=== PATIENT | male | born 1935 | race Caucasian/White ===

== ENCOUNTER → 2017-12-13 10:18 | Outpatient (CLI) | payer MEDICARE, OTHER, SELFPAY ==
[2017-12-13 13:29] LABS: Basophils # 0.1 K/mm3 (0-0.2); Basophils % 1.1 % (0.1-2.0); Eosinophils % 15.6 % (0.1-12.0); Hemoglobin 12.9 g/dL (14.1-18.0); Lymphocytes # 1.7 K/mm3 (0.7-4.5); Lymphocytes % 26.1 K/mm3 (10-50); Mean Corpuscular HGB Conc 30.7 g/dL (31.8-35.4); Mean Corpuscular Hemoglobin 31.8 pg (27.0-31.2); Mean Corpuscular Volume 103.3 fl (80-94); Mean Platelet Volume 8.5 fl (7.4-10.4); Monocytes # 0.5 K/mm3 (0.1-1.0); Neutrophils # 3.3 K/mm3 (1.8-7.8); Neutrophils % 50.2 % (37.0-80.0); Platelet Count 156 K/mm3 (142-424); Red Blood Count 4.07 M/mm3 (4.60-6.20); Red Cell Distribution Width 14.6 % (11.5-17.5); White Blood Count 6.6 K/mm3 (4.8-10.8)
[2017-12-13 13:52] LABS: Alanine Aminotransferase 14 U/L (12-78); Albumin Level 4.2 gm/dL (3.4-5.0); Albumin/Globulin Ratio 1.3 (1.1-1.8); Alkaline Phosphatase 124 U/L (46-116); Anion Gap 10.4 mEq/L (5-15); Aspartate Amino Transferase 15 U/L (15-37); Bilirubin,Total 0.6 mg/dL (0.2-1.0); Blood Urea Nitrogen 14 mg/dL (7-18); Calcium 9.3 mg/dL (8.5-10.1); Carbon Dioxide 34 mmol/L (21.0-32.0); Chloride 105 mmol/L (98-107); Chol/HDL Ratio 3.1 (1-3.5); Cholesterol 131 mg/dL (140-200); Creatinine,Serum 1.27 mg/dL (0.70-1.30); Estimated Glomerular Filt Rate 54 ml/min (>60); GFR (African American) 66 ML/MIN (>60); Globulin 3.3 gm/dl (1.3-3.2); Glucose 91 mg/dL (74-106); HDL Cholesterol 42 mg/dL (27-67); LDL Cholesterol 70 mg/dL (0-130); Potassium 4.4 mmoL/L (3.5-5.1); Sodium 145 mmol/L (136-145); Total Protein,Serum 7.5 gm/dL (6.4-8.2); Triglycerides 94 mg/dL (30-200); VLDL Cholesterol 19 mg/dL (0-40)
[2017-12-13 15:09] LABS: Erythrocyte Sedimentation Rate 14 mm/hr (0-20)
[2017-12-14 18:32] LABS: Vitamin B12 >2000 pg/mL (232-1245)
== END ==
PROVIDERS: PCP Internal Medicine Adolescent Medicine; Visit Provider Internal Medicine Adolescent Medicine
DX: E78.5 Hyperlipidemia, unspecified (principal); M10.9 Gout, unspecified; E53.8 Deficiency of other specified B group vitamins
CPT/HCPCS: 36415; 80053; 80061; 82607; 85025; 85651

== ENCOUNTER 2017-12-19 12:03 | Emergency (ER) | payer MEDICARE, OTHER, SELFPAY ==
[2017-12-19 12:13] VITALS: BP 129/83; PULSE 75; RESP 22; TEMP 36.5; O2SAT 96; BMI 27.9
--- NOTE | 2017-12-19 12:30 | CT_ITS ---
CT cervical spine wo con INDICATION: Neck pain following injury ITS.REASON: FALL ORDERING PHYSICIAN: Florecita Garza MD PATIENT AGE: 82 years COMPARISON: None TECHNIQUE: Axial images are obtained without contrast. Sagittal and coronal reformatted images are reviewed as well. All CT scans at the facility use one or more dose reduction, viz: automated exposure control; ma/kV adjustment per patient size (including targeted exams where dose is matched to indication; i.e. head); or iterative reconstruction technique. FINDINGS: There is normal alignment. No fracture or dislocation is evident. There is degenerative disc disease at C2-C3 with small endplate osteophytes slightly eccentric toward the left with mild left-sided foraminal narrowing. C3-C4: Degenerative disc disease with endplate hypertrophy eccentric towards the left with moderate left lateral recess and foraminal narrowing. C4-C5: Degenerative disc disease with borderline canal stenosis at 10 to 11 mm with bilateral foraminal narrowing right greater than left from uncovertebral hypertrophy. C5-C6 degenerative disc disease with mild bilateral foraminal narrowing from uncovertebral hypertrophy. C6-C7 mild degenerative disc disease with left-sided foraminal narrowing from uncovertebral hypertrophy. C7-T1: Degenerative disc disease Lung apices are clear. There is opacification within the ethmoid sinuses and there is an air-fluid level in the right maxillary sinus. IMPRESSION: 1. No acute fracture. 2. Multilevel cervical spondylosis with degenerative disc disease with foraminal, lateral recess, and canal narrowing as detailed above. 3. Paranasal sinus disease
--- NOTE | 2017-12-19 12:30 | CT_ITS ---
CT head/brain wo con HISTORY: Headache, head pain, laceration, contusion ITS.REASON: FALL ORDERING PHYSICIAN: Florecita Garza MD PATIENT AGE: 82 years COMPARISON: 03/28/2016 TECHNIQUE: Axial images obtained without contrast. Brain and bone windows reviewed. All CT scans at the facility use one or more dose reduction, viz: automated exposure control; ma/kV adjustment per patient size (including targeted exams where dose is matched to indication; i.e. head); or iterative reconstruction technique. FINDINGS: No midline shift, mass effect, intracranial hemorrhage, hydrocephalus, or extra-axial fluid collection is evident. There is moderate generalized atrophy with periventricular ischemic gliotic changes. No intra or extra-axial hemorrhage. The calvarium has an unremarkable appearance. No mastoid effusion. Mild mucosal thickening involves the ethmoid sinuses. Was an air-fluid level in the right maxillary sinus on the cervical spine CT IMPRESSION: 1. No acute intracranial findings. 2. Atrophy with chronic ischemic change. 3. Sinus disease
[2017-12-19 12:43] LABS: Basophils # 0.1 K/mm3 (0-0.2); Basophils % 0.7 % (0.1-2.0); Eosinophils # 0.6 K/mm3 (0.0-0.4); Eosinophils % 6.5 % (0.1-12.0); Hematocrit 41.6 % (42.0-52.0); Hemoglobin 13.1 g/dL (14.1-18.0); Lymphocytes # 1.4 K/mm3 (0.7-4.5); Lymphocytes % 15.5 K/mm3 (10-50); Mean Corpuscular HGB Conc 31.4 g/dL (31.8-35.4); Mean Corpuscular Hemoglobin 31.9 pg (27.0-31.2); Mean Corpuscular Volume 101.4 fl (80-94); Mean Platelet Volume 8.2 fl (7.4-10.4); Monocytes # 0.6 K/mm3 (0.1-1.0); Monocytes % 7.2 % (1.7-9.3); Neutrophils # 6.2 K/mm3 (1.8-7.8); Neutrophils % 70.2 % (37.0-80.0); Platelet Count 169 K/mm3 (142-424); Red Blood Count 4.11 M/mm3 (4.60-6.20); Red Cell Distribution Width 14.6 % (11.5-17.5); White Blood Count 8.8 K/mm3 (4.8-10.8)
[2017-12-19 12:55] LABS: Alanine Aminotransferase 12 U/L (12-78); Albumin/Globulin Ratio 1.1 (1.1-1.8); Alkaline Phosphatase 130 U/L (46-116); Anion Gap 11.4 mEq/L (5-15); Aspartate Amino Transferase 15 U/L (15-37); Bilirubin,Total 0.6 mg/dL (0.2-1.0); Blood Urea Nitrogen 11 mg/dL (7-18); Calcium 9.1 mg/dL (8.5-10.1); Carbon Dioxide 32 mmol/L (21.0-32.0); Chloride 103 mmol/L (98-107); Creatinine Clearance Estimated 60 mL/min (0-300); Creatinine,Serum 1.31 mg/dL (0.70-1.30); Estimated Glomerular Filt Rate 53 ml/min (>60); GFR (African American) 64 ML/MIN (>60); Globulin 3.5 gm/dl (1.3-3.2); Glucose 91 mg/dL (74-106); Potassium 4.4 mmoL/L (3.5-5.1); Sodium 142 mmol/L (136-145); Total Protein,Serum 7.5 gm/dL (6.4-8.2)
--- NOTE | 2017-12-19 14:20 | [facility].EDFALL ---
ED Disposition Clinical Impression: Laceration, Fall Disposition: Home, Self-Care Condition on Discharge: Good Instructions: DI for Laceration Repair Additional Instructions: Sutures out in 5-[address] Simon's office Referrals: Kei Simon MD [Primary Care Provider] - - Critical Care Critical Care Time: No Attestation: On 12/19/17, the high probability of a clinically significant, sudden or life threatening deterioration of the following system(s) required my full and direct attention, intervention and personal management. The time I documented below is in addition to time spent performing reported procedures but includes the following listed in this critical care notation. Medical Decision Making - Jamil Inquiry Pt receiving controlled substance: No Vital Signs: 12/19/17 12:13 Temperature 97.7 F Temperature Source Oral Pulse Rate [Right Radial] 75 Respiratory Rate 22 Blood Pressure [Right Arm] 129/83 Blood Pressure Mean [Right Arm] 98 Blood Pressure Source [Right Arm] Automatic Cuff Blood Pressure Position [Right Arm] Sitting 02 Sat by Pulse Oximetry 96 Oxygen Delivery Method Room Air - Lab Data Lab results reviewed: Yes: I reviewed the patient's lab results. Lab Results 12/19/17 12:30: WBC 8.8, RBC 4.11 L, Hgb 13.1 L, Hct 41.6 L, MCV 101.4 H, MCH 31.9 H, MCHC 31.4 L, RDW 14.6, Plt Count 169, MPV 8.2, Neut % (Auto) 70.2, Lymph % (Auto) 15.5, [place] % (Auto) 7.2, Eos % (Auto) 6.5, Baso % (Auto) 0.7, Neut # (Auto) 6.2, Lymph # (Auto) 1.4, [place] # (Auto) 0.6, Eos # (Auto) 0.6 H, Baso # (Auto) 0.1 12/19/17 12:30: Sodium 142, Potassium 4.4, Chloride 103, Carbon Dioxide 32, Anion Gap 11.4, BUN 11, Creatinine 1.31 H, Estimated Creat Clear 60, Estimated GFR 53 L, Est GFR ( Amer) 64, Glucose 91, Calcium 9.1, Total Bilirubin 0.6, AST 15, ALT 12, Alkaline Phosphatase 130 H, Total Protein 7.5, Albumin 4.0, Globulin 3.5 H, Albumin/Globulin Ratio 1.1 12/19/17 12:30: Total Creatine Kinase 244, CK-MB (CK-2) 1.3, CK-MB (CK-2) Rel Index 0.5, Troponin I < 0.02 Result diagrams: 12/19/17 12:30 12/19/17 12:30 Orders (Tests/Meds): ED MEDICATIONS Discontinued Medications Generic Name Dose Route Start Last Admin Trade Name Freq PRN Reason Stop Dose Admin Tetanus/Diphtheria Toxoids 0.5 ml 12/19/17 12:54 12/19/17 14:11 Tenivac 0.5ml Syringe IM 12/19/17 12:55 Not Given .ONCE ONE Tetanus/Reduced Diphtheria/Acell Pertussis 0.5 ml 12/19/17 13:26 12/19/17 13:27 Adacel Tdap 0.5ml Syringe IM 12/19/17 13:27 0.5 ml .ONCE ONE Administration ORDERS Category Date Time Status ECG Request by /Nse Stat Y 12/19/17 14:13 Ordered - ECG Data Tracing #1 I reviewed this ECG and interpreted as documented below: NSR, ST depression noted laterally on multiple prior EKG's, including 10/15. No acute changes; some motion artifact; old RBBB Normal Sinus Rhythm: Yes Fall HPI - General Chief Complaint: Wound/Laceration Stated Complaint: AO [id number] lac above l eye Time Seen by Provider: 12/19/17 12:45 Mode of Arrival: Wheelchair Source of Information: Spouse Limitations: No Limitations Description of Symptoms (Recalled from ER Triage Doc. by RN): CAREGIVER STATES PT WAS FOUND IN THE BATHROOM AND HAD HIT HEAD ON A DOOR FRAME AND CUT LEFT EYE BROW. PT STATES THAT HE DID NOT PASS OUT. - History of Present Illness HPI Narrative: patient states he was using the bathroom and he accidentally fell today and struck his head, sustained a 2 cm linear laceration just lateral to the left eye and he denies any prodrome; denies LOC but this event was not witnessed. 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 complaint: fall Onset (ago): hour(s) Fall from: other (commode) Fall witnessed: no Place fall occurred: home Loss of consciousness: other (patient denies LOC) Prolonged down time: no Symptoms
--- NOTE | 2017-12-19 14:23 | ED_ITS ---
ED Disposition Clinical Impression: Laceration, Fall Disposition: Home, Self-Care Condition on Discharge: Good Instructions: DI for Laceration Repair Additional Instructions: Sutures out in 5-[address] Simon's office Referrals: Kei Simon MD [Primary Care Provider] - - Critical Care Critical Care Time: No Attestation: On 12/19/17, the high probability of a clinically significant, sudden or life threatening deterioration of the following system(s) required my full and direct attention, intervention and personal management. The time I documented below is in addition to time spent performing reported procedures but includes the following listed in this critical care notation. Medical Decision Making - Jamil Inquiry Pt receiving controlled substance: No Vital Signs: 12/19/17 12:13 Temperature 97.7 F Temperature Source Oral Pulse Rate [Right Radial] 75 Respiratory Rate 22 Blood Pressure [Right Arm] 129/83 Blood Pressure Mean [Right Arm] 98 Blood Pressure Source [Right Arm] Automatic Cuff Blood Pressure Position [Right Arm] Sitting 02 Sat by Pulse Oximetry 96 Oxygen Delivery Method Room Air - Lab Data Lab results reviewed: Yes: I reviewed the patient's lab results. Lab Results 12/19/17 12:30: WBC 8.8, RBC 4.11 L, Hgb 13.1 L, Hct 41.6 L, MCV 101.4 H, MCH 31.9 H, MCHC 31.4 L, RDW 14.6, Plt Count 169, MPV 8.2, Neut % (Auto) 70.2, Lymph % (Auto) 15.5, [place] % (Auto) 7.2, Eos % (Auto) 6.5, Baso % (Auto) 0.7, Neut # (Auto) 6.2, Lymph # (Auto) 1.4, [place] # (Auto) 0.6, Eos # (Auto) 0.6 H, Baso # (Auto) 0.1 12/19/17 12:30: Sodium 142, Potassium 4.4, Chloride 103, Carbon Dioxide 32, Anion Gap 11.4, BUN 11, Creatinine 1.31 H, Estimated Creat Clear 60, Estimated GFR 53 L, Est GFR ( Amer) 64, Glucose 91, Calcium 9.1, Total Bilirubin 0.6, AST 15, ALT 12, Alkaline Phosphatase 130 H, Total Protein 7.5, Albumin 4.0 , Globulin 3.5 H, Albumin/Globulin Ratio 1.1 12/19/17 12:30: Total Creatine Kinase 244, CK-MB (CK-2) 1.3, CK-MB (CK-2) Rel Index 0.5, Troponin I < 0.02 Result diagrams: 12/19/17 12:30 12/19/17 12:30 Orders (Tests/Meds): ED MEDICATIONS Discontinued Medications Generic Name Dose Route Start Last Admin Trade Name Freq PRN Reason Stop Dose Admin Tetanus/Diphtheria Toxoids 0.5 ml 12/19/17 12:54 12/19/17 14:11 Tenivac 0.5ml Syringe IM 12/19/17 12:55 Not Given .ONCE ONE Tetanus/Reduced Diphtheria/Acell Pertussis 0.5 ml 12/19/17 13:26 12/19/17 13: 27 Adacel Tdap 0.5ml Syringe IM 12/19/17 13:27 0.5 ml .ONCE ONE Administration ORDERS Category Date Time Status ECG Request by /Nse Stat Y 12/19/17 14:13 Ordered - ECG Data Tracing #1 I reviewed this ECG and interpreted as documented below: NSR, ST depression noted laterally on multiple prior EKG's, including 10/15. No acute changes; some motion artifact; old RBBB Normal Sinus Rhythm: Yes Fall HPI - General Chief Complaint: Wound/Laceration Stated Complaint: AO [id number] lac above l eye Time Seen by Provider: 12/19/17 12:45 Mode of Arrival: Wheelchair Source of Information: Spouse Limitations: No Limitations Description of Symptoms (Recalled from ER Triage Doc. by RN): CAREGIVER STATES PT WAS FOUND IN THE BATHROOM AND HAD HIT HEAD ON A DOOR FRAME AND CUT LEFT EYE BROW. PT STATES JOSE ALBERTO
[2017-12-19 14:36] LABS: CKMB Relative Index 0.5 U/L (0-4.0); Creatine Kinase 244 U/L (39-308); Creatine Kinase MB 1.3 ng/ml (0.0-3.6); Troponin I < 0.02 ng/ml (0.00-0.06)
[2017-12-19 15:25] VITALS: BP 144/76; PULSE 68; RESP 20; TEMP 36.7; O2SAT 95
== END 2017-12-19 15:28 | disposition home or self-care (01) ==
PROVIDERS: Emergency Provider Emergency Medicine; PCP Internal Medicine Adolescent Medicine
DX: S01.112A Laceration without foreign body of left eyelid and periocular area, initial encounter (principal); W01.198A Fall on same level from slipping, tripping and stumbling with subsequent striking against other object, initial encounter; Y92.012 Bathroom of single-family (private) house as the place of occurrence of the external cause; Z23 Encounter for immunization; I10 Essential (primary) hypertension; F17.290 Nicotine dependence, other tobacco product, uncomplicated; Z88.8 Allergy status to other drugs, medicaments and biological substances; Z79.899 Other long term (current) drug therapy
CPT/HCPCS: 12011; 70450; 72125; 80053; 82550; 82553; 84484; 85025; 90471; 90715; 93005; 96372; 99283

== ENCOUNTER → 2018-03-20 08:29 | Outpatient (CLI) | payer MEDICARE, SELFPAY ==
[2018-03-20 13:33] LABS: Alanine Aminotransferase 14 U/L (12-78); Albumin Level 3.8 gm/dL (3.4-5.0); Albumin/Globulin Ratio 1.2 (1.1-1.8); Alkaline Phosphatase 131 U/L (46-116); Anion Gap 9.9 mEq/L (5-15); Aspartate Amino Transferase 19 U/L (15-37); Bilirubin,Total 0.5 mg/dL (0.2-1.0); Blood Urea Nitrogen 11 mg/dL (7-18); Calcium 8.7 mg/dL (8.5-10.1); Carbon Dioxide 31 mmol/L (21.0-32.0); Chloride 103 mmol/L (98-107); Chol/HDL Ratio 3.1 (1-3.5); Cholesterol 121 mg/dL (140-200); Creatinine,Serum 1.27 mg/dL (0.70-1.30); Estimated Glomerular Filt Rate 54 ml/min (>60); GFR (African American) 66 ML/MIN (>60); Globulin 3.2 gm/dl (1.3-3.2); Glucose 106 mg/dL (74-106); HDL Cholesterol 39 mg/dL (27-67); LDL Cholesterol 57 mg/dL (0-130); Potassium 3.9 mmoL/L (3.5-5.1); Sodium 140 mmol/L (136-145); Triglycerides 124 mg/dL (30-200); VLDL Cholesterol 25 mg/dL (0-40)
[2018-03-20 13:46] LABS: Basophils # 0.1 K/mm3 (0-0.2); Basophils % 1.1 % (0.1-2.0); Eosinophils # 0.8 K/mm3 (0.0-0.4); Eosinophils % 10.3 % (0.1-12.0); Hemoglobin 12.1 g/dL (14.1-18.0); Lymphocytes # 1.8 K/mm3 (0.7-4.5); Lymphocytes % 25.2 K/mm3 (10-50); Mean Corpuscular HGB Conc 30.3 g/dL (31.8-35.4); Mean Corpuscular Hemoglobin 31.5 pg (27.0-31.2); Mean Platelet Volume 8.1 fl (7.4-10.4); Monocytes # 0.4 K/mm3 (0.1-1.0); Monocytes % 5.9 % (1.7-9.3); Neutrophils # 4.2 K/mm3 (1.8-7.8); Neutrophils % 57.4 % (37.0-80.0); Platelet Count 179 K/mm3 (142-424); Red Blood Count 3.84 M/mm3 (4.60-6.20); Red Cell Distribution Width 14.6 % (11.5-17.5); White Blood Count 7.3 K/mm3 (4.8-10.8)
[2018-03-21 20:05] LABS: Vitamin B12 974 pg/mL (232-1245)
== END ==
PROVIDERS: Visit Provider Internal Medicine Adolescent Medicine
DX: I63.9 Cerebral infarction, unspecified (principal); E78.5 Hyperlipidemia, unspecified; M10.9 Gout, unspecified; E53.8 Deficiency of other specified B group vitamins
CPT/HCPCS: 36415; 80053; 80061; 82607; 84550; 85025

== ENCOUNTER 2018-08-17 20:11 | Inpatient (IN) ==
[2018-08-17 20:56] LABS: Basophils % 0.4 % (0.1-2.0); Eosinophils # 0.2 K/mm3 (0.0-0.4); Eosinophils % 1.9 % (0.1-12.0); Hematocrit 39.2 % (42.0-52.0); Hemoglobin 12.2 g/dL (14.1-18.0); Lymphocytes # 1.2 K/mm3 (0.7-4.5); Mean Corpuscular HGB Conc 31.1 g/dL (31.8-35.4); Mean Corpuscular Hemoglobin 31.7 pg (27.0-31.2); Mean Corpuscular Volume 101.8 fl (80-94); Mean Platelet Volume 8.2 fl (7.4-10.4); Monocytes # 0.5 K/mm3 (0.1-1.0); Monocytes % 4.9 % (1.7-9.3); Neutrophils # 8.5 K/mm3 (1.8-7.8); Neutrophils % 81.8 % (37.0-80.0); Platelet Count 164 K/mm3 (142-424); Red Blood Count 3.85 M/mm3 (4.60-6.20); Red Cell Distribution Width 15.6 % (11.5-17.5); White Blood Count 10.4 K/mm3 (4.8-10.8)
[2018-08-17 21:11] LABS: Albumin Level 3.8 gm/dL (3.4-5.0); Anion Gap 11.9 mEq/L (5-15); Bilirubin,Total 0.4 mg/dL (0.2-1.0); Globulin 3.7 gm/dl (1.3-3.2); Potassium 4.9 mmoL/L (3.5-5.1); Total Protein,Serum 7.5 gm/dL (6.4-8.2)
--- NOTE | 2018-08-17 22:02 | Emergency Department Note ---
ED Disposition Clinical Impression: Sepsis Qualifiers: Sepsis type: sepsis due to unspecified organism Qualified Code(s): A41.9 - Sepsis, unspecified organism Hypotension Qualifiers: Hypotension type: unspecified hypotension type Qualified Code(s): I95.9 - Hypotension, unspecified Disposition: Still a Patient Condition on Discharge: Fair Referrals: Kei Simon MD [Primary Care Provider] - - Critical Care Critical Care Time: Yes Attestation: On 08/17/18, the high probability of a clinically significant, sudden or life threatening deterioration of the following system(s) required my full and direct attention, intervention and personal management. The time I documented below is in addition to time spent performing reported procedures but includes the following listed in this critical care notation. Total Critical Care Time: 35 Vital system(s) involved:: Shock (Septic) My critical care processes included: Assessment & monitoring of V/S, Initial and Re-exams, Data Review/Interpretation, Coordinating Care, Medication Orders and management, Documentation Medical Decision Making - Jamil Inquiry Pt receiving controlled substance: No Vital Signs: 08/17/18 20:14 08/17/18 22:07 08/17/18 22:52 Temperature 103.1 F H 100.5 F H Temperature Source Oral Oral Pulse Rate [Right Brachial] 77 70 70 Respiratory Rate 20 15 20 Blood Pressure [Right Arm] 97/62 L 120/77 112/65 Blood Pressure Mean [Right Arm] 73 91 80 Blood Pressure Source [Right Arm] Automatic Cuff Blood Pressure Position [Right Arm] Sitting 02 Sat by Pulse Oximetry 91 L 98 97 Oxygen Delivery Method Room Air Nasal Cannula Oxygen Flow Rate (LPM) 2 08/17/18 23:08 08/17/18 23:35 Temperature Temperature Source Pulse Rate [Right Brachial] 70 70 Respiratory Rate 18 22 Blood Pressure [Right Arm] 109/71 L 107/68 L Blood Pressure Mean [Right Arm] 83 81 Blood Pressure Source [Right Arm] Automatic Cuff Automatic Cuff Blood Pressure Position [Right Arm] Sitting Sitting 02 Sat by Pulse Oximetry 97 96 Oxygen Delivery Method Oxygen Flow Rate (LPM) - Lab Data Lab Results 08/17/18 20:40: WBC 10.4, RBC 3.85 L, Hgb 12.2 L, Hct 39.2 L, MCV 101.8 H, MCH 31.7 H, MCHC 31.1 L, RDW 15.6, Plt Count 164, MPV 8.2, Neut % (Auto) 81.8 H, Lymph % (Auto) 11.0, [place] % (Auto) 4.9, Eos % (Auto) 1.9, Baso % (Auto) 0.4, Neut # (Auto) 8.5 H, Lymph # (Auto) 1.2, [place] # (Auto) 0.5, Eos # (Auto) 0.2, Baso # (Auto) 0.0 08/17/18 20:40: Sodium 138, Potassium 4.9, Chloride 100, Carbon Dioxide 31, Anion Gap 11.9, BUN 20 H, Creatinine 1.49 H, Estimated Creat Clear 62, Estimated GFR 45 L, Est GFR ( Amer) 55 L, Glucose 126 H, Calcium 9.0, Total Bilirubin 0.4, AST 22, ALT 22, Alkaline Phosphatase 146 H, Total Protein 7.5, Albumin 3.8, Globulin 3.7 H, Albumin/Globulin Ratio 1.0 L 08/17/18 21:00: Influenza Type A Ag Negative, Influenza Type B Ag Negative 08/17/18 22:00: Lactate 1.4 08/17/18 22:35: Urine Color Dk yellow, Urine Appearance Cloudy, Urine pH 5.5, Ur Specific [place] 1.025, Urine Protein Negative, Urine Glucose (UA) Negative, Urine Ketones Trace, Urine Blood Negative, Urine Nitrate Negative, Urine Bilirubin Negative, Urine Urobilinogen 0.2, Ur Leukocyte Esterase Negative, Urine RBC 50-100, Urine Mucus 3+ Result diagrams: 08/17/18 20:40 08/17/18 20:40 Orders (Tests/Meds): ED MEDICATIONS Generic Name Dose Route Start Last Admin Trade Name Freq PRN Reason Stop Dose Admin Cefepime HCl 2 gm/ Sodium 100 mls @ 200 mls/hr 08/18/18 00:15 Chloride IV 09/01/18 00:14 Q12H [facility] Protocol Discontinued Medications Generic Name Dose Route Start Last Admin Trade Name Freq PRN Reason Stop Dose Admin Acetaminophen 1,000 mg 08/17/18 20:22 08/17/18 20:56 Tylenol 500mg Tablet PO 08/17/18 20:23 1,000 mg ONCE ONE Administration Sodium Chloride 1,000 mls @ 999 mls/hr 08/17/18 20:30 08/17/18 20:57 Sod Chlor 0.9% 1000ml Bag IV 08/17/18 21:30 999 mls/hr .Q1H1M SAÚL Administration Ibuprofen 600 mg 08/17/18 20:22 08/17/18 20:57 Motrin 600mg Tablet PO 08/17/18 20:23 600 mg ONCE ONE Administration Miscellaneous 1 each 08/18/18 00:08 Vancomycin Consult Request NOTAPPLIC 08/18/18 00:09 CONSULT PHARMACY ONE ORDERS Category Date Time Status XR chest portable Stat Exams 08/17/18 20:22 Taken Urinalysis and Microscopic Stat Lab 08/17/18 22:35 Ordered Blood Culture Stat Micro 08/17/18 22:00 Received - Radiology Data #1 Image(s): Chest Image Reviewed: Yes I reviewed the patient's radiology image Preliminary Findings: Normal/NAD - Physician Consults Physician Consulted: Joseph Simon Time: 23:45 Reason -: Admission Comment/Response: Agrees to admit the patient to the hospital. We discussed the patient's clinical information, including history, exam, laboratory and radiology results and ED course. Per hospital procedure, I will write temporary bridge inpatient orders on the patient. Specific orders requested by the admitting physician: Vancomycin and cefepime, IV fluids, recheck labs in the morning General Adult HPI - General Chief complaint: Fever Stated complaint: tremors Time Seen by Provider: 08/17/18 22:00 Mode of Arrival: EMS Limitations: No Limitations Description of Symptoms (Recalled from ER Triage Doc. by RN): Brought in by [facility] for c/o tremors which are new according to family. EN route EMS stated pt sounded "junky" and gave a duoneb in route. Subsequently pt had a fever >103 aswell. - History of Present Illness HPI narrative: Brought in by ambulance for shaking/tremoring. Started today. states that he has had tremoring of his legs at night for 4-5 months, but this was different. He has not seen his primary care provider about those nighttime tremors. Stated his hands felt cold. intelligence specialist felt that he sounded junky in route and gave him a breathing treatment. He does get breathing treatments at home. Family says that he has a congested cough before he gets his breathing treatment, which is chronic. They state he has not had any unusual coughing today. He has had some rhinorrhea. He denies any pain. No headache. No chest pain. No back. No abdominal pain. No pain in extremities. reports decreased urination today. No vomiting or diarrhea, in fact she says he stays constipated and has to get MiraLAX every 3 days. Denies shortness of breath. Found to have a fever of 103 degrees on arrival. He did have a flu shot this year. No sick contacts. - Related Data Home Medications Medication Instructions Recorded Confirmed Allopurinol [Allopurinol 300mg 300 tab PO DAILY 12/19/17 08/18/18 tablet] Amlodipine Besylate [Norvasc 5mg 5 mg PO DAILY 12/19/17 08/18/18 tablet] Aspirin [Aspirin 81mg chewable 81 mg PO DAILY 12/19/17 08/18/18 tab] Gabapentin [Neurontin 600mg 600 mg PO TID 12/19/17 08/18/18 tablet] Lisinopril [Lisinopril 40mg Tablet] 1 tab PO BID 12/19/17 08/18/18 Metoprolol Tartrate [Lopressor 25 mg PO BID 12/19/17 08/18/18 25mg tablet] Oxycodone HCl/Acetaminophen 1 each PO QID 12/19/17 08/18/18 [Oxycodone W/Apap 325mg Tablet] Pravastatin Sodium [Pravachol 20mg 20 mg PO HS 12/19/17 08/18/18 Tablet] Allergies Allergy/AdvReac Type Severity Reaction Status Date / Time diltiazem [DILTIAZEM] Allergy Unknown Verified 12/19/17 12:23 [facility] History I have reviewed the patient's past medical history: Yes Medical History: Reports:: MRSA Denies:: Cancer, Diabetes Mellitus Type 1, Diabetes Mellitus Type 2 Amputation: No Fractures: No - Social History Smoking Status: Current every day smoker Tobacco Type: smokeless tobacco Alcohol Intake: never - Psychiatric History Expresses thoughts of harming self/others: None Suicide Plan Description: No Plan ROS Obtained: Yes All systems reviewed & no additional complaints - Constitutional Constitutional: Denies body ache, Reports chills (Tremors are likely due to rigors), Reports fever(s) (Found on arrival) - ENT Ears, Nose, Mouth, and Throat: Reports nasal discharge, Denies sore throat - Cardiovascular Cardiovascular: Denies chest pain - Respiratory Respiratory: Yes cough (Chronic, no acute change), No dyspnea - Gastrointestinal Gastrointestingal: Reports: constipation. Denies: abdominal pain, diarrhea, vomiting - Genitourinary Male Genitourinary: Reports decreased urination - Musculoskeletal Musculoskeletal: Denies back pain, Denies neck pain - Integumentary/Breasts Skin/Breast: Denies boil, Denies rash - Neurologic Neurologic: Denies headache(s), Reports tremor(s) Physical Exam - General General appearance: alert, in no apparent distress - Head Head exam: atraumatic, normocephalic - Eye Eye exam: Present: normal appearance, PERRL, EOMI - ENT ENT exam: Present: mucous membranes moist - Neck Neck exam: Present: normal inspection, full ROM, trachea midline. Absent: meningismus, lymphadenopathy - Chest Chest inspection: Present: normal inspection, symmetric chest wall rise - Respiratory Respiratory exam: Present: normal lung sounds bilaterally, other (Occasional cough) - Cardiovascular Cardiovascular exam: Present: regular rate, normal rhythm, normal heart sounds - Abdominal Exam Abdominal exam: Present: soft. Absent: distention, tenderness, guarding, rebound, rigidity - Extremities Exam Extremities exam: Present: normal inspection, other (No cellulitis seen) - Neurological Exam Neurological exam: Present: alert, oriented X3, CN II-XII intact. Absent: motor sensory deficit - Skin Skin exam: Present: warm, dry, other (No cellulitis seen). Absent: rash
[2018-08-17 23:07] LABS: Microscopic, Urine URINE MICROSCOPIC (MICROSCOPIC)
[2018-08-17 23:11] LABS: Appearance,Urine CLOUDY (Clear); Bilirubin,Urine Negative (Negative); Blood, Urine Negative (Negative); Color,Urine DK YELLOW (Yellow); Glucose,Urine (UA) Negative (Negative); Ketones,Urine TRACE (Negative); Leukocyte Esterase,Urine Negative (Negative); PH,Urine 5.5 (5.0-8.5); Protein,Urine Negative (Negative); Specific Gravity, Urine 1.025 (1.005-1.030); Urobilinogen,Urine 0.2 EU/dl (0.2)
[2018-08-17 23:19] LABS: Mucus,Urine 3+ /lpf; RBC,Urine 50-100 #/hpf (0-3)
[2018-08-18 05:24] LABS: Basophils % 0.3 % (0.1-2.0); Eosinophils # 0.1 K/mm3 (0.0-0.4); Eosinophils % 0.9 % (0.1-12.0); Hematocrit 32.7 % (42.0-52.0); Lymphocytes # 1.6 K/mm3 (0.7-4.5); Lymphocytes % 14.9 % (10-50); Mean Corpuscular HGB Conc 31.3 g/dL (31.8-35.4); Mean Corpuscular Hemoglobin 32.1 pg (27.0-31.2); Mean Corpuscular Volume 102.8 fl (80-94); Monocytes # 0.5 K/mm3 (0.1-1.0); Monocytes % 4.6 % (1.7-9.3); Neutrophils # 8.6 K/mm3 (1.8-7.8); Neutrophils % 79.2 % (37.0-80.0); Platelet Count 129 K/mm3 (142-424); Red Blood Count 3.18 M/mm3 (4.60-6.20); Red Cell Distribution Width 15.8 % (11.5-17.5); White Blood Count 10.9 K/mm3 (4.8-10.8)
[2018-08-18 05:25] LABS: Hemoglobin 10.2 g/dL (14.1-18.0)
[2018-08-18 05:27] LABS: Anion Gap 10.3 mEq/L (5-15); Potassium 4.3 mmoL/L (3.5-5.1)
[2018-08-18 05:30] LABS: Calcium 7.9 mg/dL (8.5-10.1)
--- NOTE | 2018-08-18 07:45 | Pharmacy Consult Notes ---
[facility] Pharmacy VTE Monitoring - Patient Demographics Admission date: 08/17/18 Report Date: 08/18/18 Time: 07:45 Allergies/Adverse Reactions: Patient Allergies diltiazem [DILTIAZEM] Allergy (Unknown, Verified 12/19/17 12:23) Height: 1.8 m Weight: 113.398 kg Patient Problems: Current Active Problems Sepsis (Acute) Hypotension (Acute) - VTE Risk Labs: VTE Related Lab Results Hgb 10.2 g/dL (14.1-18.0) L D 08/18/18 04:55 Hct 32.7 % (42.0-52.0) L 08/18/18 04:55 Plt Count 129 K/mm3 (142-424) L 08/18/18 04:55 BUN 21 mg/dL (7-18) H 08/18/18 04:55 Creatinine 1.38 mg/dL (0.70-1.30) H 08/18/18 04:55 Estimated Creat Clear 67 mL/min (50-200) 08/18/18 04:55 VTE Score: 5 VTE Risk Level: Low Risk - Prophylaxis VTE Prophylaxis Ordered?: Yes Types of VTE Prophylaxis: TEDS Knee High Location of Applied Device: Bilateral Lower Extremeties - VTE Diagnosis Confirmed Treatment or plan recommended: Continue Current Treatment
--- NOTE | 2018-08-18 08:57 | Pharmacy Consult Notes ---
- Pharmacy Consult Date: 08/18/18 Time: 08:56 Referring provider: DR. PECK Reason for Consult:: VANCOMYCIN DOSING Allergies and ADEs:: Allergies Allergy/AdvReac Type Severity Reaction Status Date / Time diltiazem [DILTIAZEM] Allergy Unknown Verified 12/19/17 12:23 Home Medications:: Home Medications Medication Instructions Recorded Confirmed Type Allopurinol [Allopurinol 300mg 300 tab PO DAILY 12/19/17 08/18/18 History tablet] Amlodipine Besylate [Norvasc 5mg 5 mg PO DAILY 12/19/17 08/18/18 History tablet] Aspirin [Aspirin 81mg chewable 81 mg PO DAILY 12/19/17 08/18/18 History tab] Gabapentin [Neurontin 600mg 600 mg PO TID 12/19/17 08/18/18 History tablet] Lisinopril [Lisinopril 40mg Tablet] 1 tab PO BID 12/19/17 08/18/18 History Metoprolol Tartrate [Lopressor 25 mg PO BID 12/19/17 08/18/18 History 25mg tablet] Oxycodone HCl/Acetaminophen 1 each PO QID 12/19/17 08/18/18 History [Oxycodone W/Apap 325mg Tablet] Pravastatin Sodium [Pravachol 20mg 20 mg PO HS 12/19/17 08/18/18 History Tablet] Height: 1.8 m Weight: 113.398 kg Laboratory Results:: Laboratory Results - last 24 hr 08/17/18 20:40: WBC 10.4, RBC 3.85 L, Hgb 12.2 L, Hct 39.2 L, MCV 101.8 H, MCH 31.7 H, MCHC 31.1 L, RDW 15.6, Plt Count 164, MPV 8.2, Neut % (Auto) 81.8 H, Lymph % (Auto) 11.0, [place] % (Auto) 4.9, Eos % (Auto) 1.9, Baso % (Auto) 0.4, Neut # (Auto) 8.5 H, Lymph # (Auto) 1.2, [place] # (Auto) 0.5, Eos # (Auto) 0.2, Baso # (Auto) 0.0 08/17/18 20:40: Sodium 138, Potassium 4.9, Chloride 100, Carbon Dioxide 31, Anion Gap 11.9, BUN 20 H, Creatinine 1.49 H, Estimated Creat Clear 62, Estimated GFR 45 L, Est GFR ( Amer) 55 L, Glucose 126 H, Calcium 9.0, Total Bilirubin 0.4, AST 22, ALT 22, Alkaline Phosphatase 146 H, Total Protein 7.5, Albumin 3.8, Globulin 3.7 H, Albumin/Globulin Ratio 1.0 L 08/17/18 21:00: Influenza Type A Ag Negative, Influenza Type B Ag Negative 08/17/18 22:00: Lactate 1.4 08/17/18 22:35: Urine Color Dk yellow, Urine Appearance Cloudy, Urine pH 5.5, Ur Specific [place] 1.025, Urine Protein Negative, Urine Glucose (UA) Negative, Urine Ketones Trace, Urine Blood Negative, Urine Nitrate Negative, Urine Bilirubin Negative, Urine Urobilinogen 0.2, Ur Leukocyte Esterase Negative, Urine RBC 50-100, Urine Mucus 3+ 08/18/18 04:55: WBC 10.9 H, RBC 3.18 L, Hgb 10.2 L D, Hct 32.7 L, MCV 102.8 H, MCH 32.1 H, MCHC 31.3 L, RDW 15.8, Plt Count 129 L, MPV 8.0, Neut % (Auto) 79.2, Lymph % (Auto) 14.9, [place] % (Auto) 4.6, Eos % (Auto) 0.9, Baso % (Auto) 0.3, Neut # (Auto) 8.6 H, Lymph # (Auto) 1.6, [place] # (Auto) 0.5, Eos # (Auto) 0.1, Baso # (Auto) 0.0 08/18/18 04:55: Sodium 139, Potassium 4.3, Chloride 106, Carbon Dioxide 27, Anion Gap 10.3, BUN 21 H, Creatinine 1.38 H, Estimated Creat Clear 67, Estimated GFR 49 L, Est GFR ( Amer) 60, Glucose 140 H, Calcium 7.9 L D 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 PHARMACY WILL FOLLOW DAILY AND ADJUST APPROPRIATE. SHARMIN FRAGA, [place]
--- NOTE | 2018-08-18 11:00 | History & Physical Report ---
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 He was given fluid resuscitation, and appropriate interventions with broad- spectrum antibiotics for sepsis, cultures were drawn but transferred to the hospital floor for further evaluation. This morning he already feels better, and is hungry. [facility] History I have reviewed the patient's past medical history: Yes Medical History: Reports:: Chronic Obstructive Pulmonary Disease (COPD), Internal Pacemaker, MRSA Denies:: Cancer, Diabetes Mellitus Type 1, Diabetes Mellitus Type 2 Other Surgeries: Yes: Pacemaker Amputation: No Fractures: No - *Social History Smoking Status: Current every day smoker Tobacco Type: smokeless tobacco Alcohol Intake: never Occupational Status: retired Housing: house Household Members: spouse - Psychiatric History Expresses thoughts of harming self/others: None Suicide Plan Description: No Plan Review of Systems - Review of Systems Review of systems:: pertinent systems reviewed and negative unless documented below - Constitutional Denies anorexia, Denies body ache(s) - Eyes Denies blind spots - ENT Reports abnormal hearing - *Cardiovascular Reports excessive sweating, Reports shortness of breath, Reports shortness of breath with activity, Denies chest pain, Denies irregular heart rhythm - *Neurologic Reports tremor(s), Denies headache(s) Meds Home Medications Medication Instructions Recorded Confirmed Type Allopurinol [Allopurinol 300mg 300 tab PO DAILY 12/19/17 08/18/18 History tablet] Amlodipine Besylate [Norvasc 5mg 5 mg PO DAILY 12/19/17 08/18/18 History tablet] Aspirin [Aspirin 81mg chewable 81 mg PO DAILY 12/19/17 08/18/18 History tab] Gabapentin [Neurontin 600mg 1,200 mg PO TID 12/19/17 08/18/18 History tablet] Lisinopril [Lisinopril 40mg Tablet] 40 mg PO BID 12/19/17 08/18/18 History Oxycodone HCl/Acetaminophen 1 each PO Q6H 12/19/17 08/18/18 History [Oxycodone W/Apap 325mg Tablet] Pravastatin Sodium [Pravachol 20mg 20 mg PO HS 12/19/17 08/18/18 History Tablet] Metoprolol Succinate [Toprol XL 25 mg PO BID 08/18/18 08/18/18 History 25mg tablet] Allergies Allergy/AdvReac Type Severity Reaction Status Date / Time diltiazem [DILTIAZEM] Allergy Unknown Verified 12/19/17 12:23 Exam Vital signs and Labs for Last 24 Hours: Temp Pulse Resp BP Pulse Ox 97.6 F 74 17 108/68 L 100 08/18/18 08:00 08/18/18 08:00 08/18/18 08:00 08/18/18 08:00 08/18/18 08:00 Laboratory Results - last 24 hr 08/17/18 20:40: WBC 10.4, RBC 3.85 L, Hgb 12.2 L, Hct 39.2 L, MCV 101.8 H, MCH 31.7 H, MCHC 31.1 L, RDW 15.6, Plt Count 164, MPV 8.2, Neut % (Auto) 81.8 H, Lymph % (Auto) 11.0, [place] % (Auto) 4.9, Eos % (Auto) 1.9, Baso % (Auto) 0.4, Neut # (Auto) 8.5 H, Lymph # (Auto) 1.2, [place] # (Auto) 0.5, Eos # (Auto) 0.2, Baso # (Auto) 0.0 08/17/18 20:40: Sodium 138, Potassium 4.9, Chloride 100, Carbon Dioxide 31, Anion Gap 11.9, BUN 20 H, Creatinine 1.49 H, Estimated Creat Clear 62, Estimated GFR 45 L, Est GFR ( Amer) 55 L, Glucose 126 H, Calcium 9.0, Total Bilirubin 0.4, AST 22, ALT 22, Alkaline Phosphatase 146 H, Total Protein 7.5, Albumin 3.8, Globulin 3.7 H, Albumin/Globulin Ratio 1.0 L 08/17/18 21:00: Influenza Type A Ag Negative, Influenza Type B Ag Negative 08/17/18 22:00: Lactate 1.4 08/17/18 22:35: Urine Color Dk yellow, Urine Appearance Cloudy, Urine pH 5.5, Ur Specific [place] 1.025, Urine Protein Negative, Urine Glucose (UA) Negative, Urine Ketones Trace, Urine Blood Negative, Urine Nitrate Negative, Urine Bilirubin Negative, Urine Urobilinogen 0.2, Ur Leukocyte Esterase Negative, Urine RBC 50-100, Urine Mucus 3+ 08/18/18 04:55: WBC 10.9 H, RBC 3.18 L, Hgb 10.2 L D, Hct 32.7 L, MCV 102.8 H, MCH 32.1 H, MCHC 31.3 L, RDW 15.8, Plt Count 129 L, MPV 8.0, Neut % (Auto) 79.2, Lymph % (Auto) 14.9, [place] % (Auto) 4.6, Eos % (Auto) 0.9, Baso % (Auto) 0.3, Neut # (Auto) 8.6 H, Lymph # (Auto) 1.6, [place] # (Auto) 0.5, Eos # (Auto) 0.1, Baso # (Auto) 0.0 08/18/18 04:55: Sodium 139, Potassium 4.3, Chloride 106, Carbon Dioxide 27, Anion Gap 10.3, BUN 21 H, Creatinine 1.38 H, Estimated Creat Clear 67, Estimated GFR 49 L, Est GFR ( Amer) 60, Glucose 140 H, Calcium 7.9 L D I & O for Last 24 hours: Intake & Output 08/15/18 08/16/18 08/17/18 08/18/18 11:59 11:59 11:59 11:59 Intake Total 602 / 602 Balance 602 / 602 Weight 250 lb Narrative: Patient is pleasant, oriented x2 which is improved over last night, a little fu zzy about the date. Oropharynx is dry but clear. He is edentulous. No lesions. No JVD. Rhonchi in both lower lung hernandez, however this is his baseline exam. Heart rate regular with history of flow murmur. Abdomen soft and nontender, no Pulses are diminished in both lower extremities as previously noted. Able to move all arms and legs although limited by significant pain from his back spon dylolisthesis and his significant osteoarthritis of knees and hips. No skin rash. Assessment and Plan (1) COPD (chronic obstructive pulmonary disease) Current visit: Yes Status: Acute Category: Medical Code(s): J44.9 - Chronic obstructive pulmonary disease, unspecified Disease seems at baseline. Obviously watch for source of infection from lungs. Repeat chest x-ray with nonportable x-ray as patient is able to sit/stand for this procedure. (2) Hypotension Current visit: Yes Status: Acute Qualifiers: Hypotension type: unspecified hypotension type Qualified Code(s): I95.9 - Hypotension, unspecified Category: Medical Code(s): I95.9 - Hypotension, unspecified Improved after fluid resuscitation. (3) Sepsis Current visit: Yes Status: Acute Qualifiers: Sepsis type: sepsis due to unspecified organism Qualified Code(s): A41.9 - Sepsis, unspecified organism Category: Medical Code(s): A41.9 - Sepsis, unspecified organism Agree with initiation of sepsis protocol. Patient already improved. Await blood/urine/sputum cultures.
[2018-08-19 05:53] LABS: Basophils % 0.4 % (0.1-2.0); Eosinophils # 0.3 K/mm3 (0.0-0.4); Eosinophils % 3.3 % (0.1-12.0); Hematocrit 35.6 % (42.0-52.0); Lymphocytes # 1.5 K/mm3 (0.7-4.5); Lymphocytes % 14.6 % (10-50); Mean Corpuscular HGB Conc 30.9 g/dL (31.8-35.4); Mean Corpuscular Volume 103.8 fl (80-94); Mean Platelet Volume 7.8 fl (7.4-10.4); Monocytes # 0.5 K/mm3 (0.1-1.0); Monocytes % 4.8 % (1.7-9.3); Neutrophils # 7.8 K/mm3 (1.8-7.8); Neutrophils % 76.8 % (37.0-80.0); Platelet Count 137 K/mm3 (142-424); Red Blood Count 3.43 M/mm3 (4.60-6.20); Red Cell Distribution Width 15.8 % (11.5-17.5); White Blood Count 10.1 K/mm3 (4.8-10.8)
[2018-08-19 06:12] LABS: Albumin Level 3.4 gm/dL (3.4-5.0); Albumin/Globulin Ratio 0.9 (1.1-1.8); Anion Gap 11.3 mEq/L (5-15); Bilirubin,Total 0.6 mg/dL (0.2-1.0); Globulin 3.7 gm/dl (1.3-3.2); Potassium 4.3 mmoL/L (3.5-5.1); Total Protein,Serum 7.1 gm/dL (6.4-8.2)
[2018-08-19 06:20] LABS: Calcium 8.7 mg/dL (8.5-10.1)
--- NOTE | 2018-08-19 11:34 | Discharge Summary ---
General - General Admission date:: 08/18/18 Discharge date: 08/20/18 HPI HPI: 82-year-old white male with history of emphysema that requires oxygen in the evenings at home who has had several episodes over the past years with fevers, hypotension and good recovery with antibiotics although he is never had bacterial cultures positive, came to the emergency department with a similar constellation of complaints including fever, confusion, and low blood pressure in the ER. He was given fluid resuscitation, and appropriate interventions with broad- spectrum antibiotics for sepsis, cultures were drawn but transferred to the hospital floor for further evaluation. This morning he already feels better, and is hungry. Hospital Course Hospital Course: Patient admitted due to hypotension, dizziness, concern for respiratory distress. Broad-spectrum antibiotics, cultures obtained, submental oxygen started. Defervesced with resumption of hemodynamic ability throughout remainder of hospitalization. Cultures non-specific with no pathogen identified. Oxygen was weaned back to home use of just nighttime as needed. Transition oral antibiotics for continued empiric therapy. Discharged home with plan to complete 10 days of antibiotic therapy and follow-up in clinic next week. Objective Vital signs: Temp Pulse Resp BP Pulse Ox 97.8 F 78 18 153/93 H 97 08/19/18 08:00 08/19/18 08:00 08/19/18 08:00 08/19/18 08:00 08/19/18 08:00 Narrative: Patient much more pleasant this morning but cooperative on exam. Oriented x2. Oropharynx is moist but clear. He is edentulous. No lesions. No JVD. Rhonchi in both lower lung hernandez, stable with his baseline exam. Heart rate regular with history of flow murmur. Rhonchi move with cough, no crackles Abdomen soft and nontender Pulses are diminished in both lower extremities as previously noted. Able to move all arms and legs although limited by significant pain from his back spondylolisthesis and his significant osteoarthritis of knees and hips. No skin rash. Results Labs on day of discharge: Labs from last 24 hours 08/19/18 08/19/18 05:20 05:20 WBC 10.1 RBC 3.43 L Hgb 11.0 L Hct 35.6 L MCV 103.8 H MCH 32.0 H MCHC 30.9 L RDW 15.8 Plt Count 137 L MPV 7.8 Neut % (Auto) 76.8 Lymph % (Auto) 14.6 [place] % (Auto) 4.8 Eos % (Auto) 3.3 Baso % (Auto) 0.4 Neut # (Auto) 7.8 Lymph # (Auto) 1.5 [place] # (Auto) 0.5 Eos # (Auto) 0.3 Baso # (Auto) 0.0 Sodium 140 Potassium 4.3 Chloride 104 Carbon Dioxide 29 Anion Gap 11.3 BUN 17 Creatinine 1.04 D Estimated Creat Clear 89 Estimated GFR 69 Est GFR ( Amer) 83 D Glucose 89 Calcium 8.7 D Total Bilirubin 0.6 AST 13 L D ALT 17 Alkaline Phosphatase 124 H Total Protein 7.1 Albumin 3.4 D Globulin 3.7 H Albumin/Globulin Ratio 0.9 L DS: Diagnosis - Discharge Diagnosis (1) COPD (chronic obstructive pulmonary disease) Status: Acute (2) Hypotension Status: Acute (3) Sepsis Status: Acute Problem details: Resolved. Continue antibiotics for 10-day course of treatment. Follow-up next week in clinic Discharge Plan - Patient Discharge Instructions ACTIVITY: Continue current activity DIET: continue same diet Patient Instructions: DI for Chronic Obstructive Pulmonary Disease, DI for Sepsis -- Adult - Follow up Plan Follow up with: Kei Simon MD [Primary Care Provider] - 1 day Disposition: Home, Self-Longterm Medications: Home Medications Medication Instructions Recorded Confirmed Type Allopurinol [Allopurinol 300mg 300 tab PO DAILY 12/19/17 08/18/18 History tablet] Amlodipine Besylate [Norvasc 5mg 5 mg PO DAILY 12/19/17 08/18/18 History tablet] Aspirin [Aspirin 81mg chewable 81 mg PO DAILY 12/19/17 08/18/18 History tab] Gabapentin [Neurontin 600mg 1,200 mg PO TID 12/19/17 08/18/18 History tablet] Lisinopril [Lisinopril 40mg Tablet] 40 mg PO BID 12/19/17 08/18/18 History Oxycodone HCl/Acetaminophen 1 each PO Q6H 12/19/17 08/18/18 History [Oxycodone W/Apap 325mg Tablet] Pravastatin Sodium [Pravachol 20mg 20 mg PO HS 12/19/17 08/18/18 History Tablet] Metoprolol Succinate [Toprol XL 25 mg PO BID 08/18/18 08/18/18 History 25mg tablet] Prescriptions/Medication Reconciliation: New levoFLOXacin [Levaquin 750mg tablet] 750 mg PO DAILY #7 tab Continue Pravastatin Sodium [Pravachol 20mg Tablet] 20 mg PO HS Oxycodone HCl/Acetaminophen [Oxycodone W/Apap 325mg Tablet] 1 each PO Q6H Lisinopril [Lisinopril 40mg Tablet] 40 mg PO BID Gabapentin [Neurontin 600mg tablet] 1,200 mg PO TID Allopurinol [Allopurinol 300mg tablet] 300 tab PO DAILY Aspirin [Aspirin 81mg chewable tab] 81 mg PO DAILY Amlodipine Besylate [Norvasc 5mg tablet] 5 mg PO DAILY Metoprolol Succinate [Toprol XL 25mg tablet] 25 mg PO BID
--- NOTE | 2018-08-19 18:29 | Progress Note ---
Internal Medicine - PN: Subj *Date: 08/19/18 *Time: 08:30 Interval history: Did wel lovernight. No acute events, remained hemodynamically stable. COntinues to require continuous supplemental O2 at 2L. No N/V/D, CP, [place]. remains unsteady on feet. Patient adamant this morning that he is going home. Not interested in staying. Was quite ornery this morning. Exam Vital signs and Labs for Last 24 Hours: Temp Pulse Resp BP Pulse Ox 97.2 F L 72 18 143/96 H 95 08/19/18 16:00 08/19/18 16:00 08/19/18 16:00 08/19/18 16:00 08/19/18 16:00 Laboratory Results - last 24 hr 08/19/18 05:20: WBC 10.1, RBC 3.43 L, Hgb 11.0 L, Hct 35.6 L, MCV 103.8 H, MCH 32.0 H, MCHC 30.9 L, RDW 15.8, Plt Count 137 L, MPV 7.8, Neut % (Auto) 76.8, Lymph % (Auto) 14.6, [place] % (Auto) 4.8, Eos % (Auto) 3.3, Baso % (Auto) 0.4, Neut # (Auto) 7.8, Lymph # (Auto) 1.5, [place] # (Auto) 0.5, Eos # (Auto) 0.3, Baso # (Auto) 0.0 08/19/18 05:20: Sodium 140, Potassium 4.3, Chloride 104, Carbon Dioxide 29, Anion Gap 11.3, BUN 17, Creatinine 1.04 D, Estimated Creat Clear 89, Estimated GFR 69, Est GFR ( Amer) 83 D, Glucose 89, Calcium 8.7 D, Total Bili [place] 0.6, AST 13 L D, ALT 17, Alkaline Phosphatase 124 H, Total Protein 7.1, Albumin 3.4 D, Globulin 3.7 H, Albumin/Globulin Ratio 0.9 L I & O for Last 24 hours: Intake & Output 08/16/18 08/17/18 08/18/18 08/19/18 23:59 23:59 23:59 23:59 Intake Total 1107 / 1107 3832 / 3832 Output Total 1400 / 1400 1950 / 1950 Balance -293 / -293 1882 / 1882 Weight 113.398 kg 113.398 kg Microbiology Reports for the Last 24 Hours: Microbiology 08/19/18 05:06 Sputum - Expectorated Sputum Gram Stain - Final Narrative: Patient is preoccupied with leaving this morning, oriented x2 Oropharynx is dry but clear. He is edentulous. No lesions. No JVD. Rhonchi in both lower lung hernandez, stable with his baseline exam. Heart rate regular with history of flow murmur. Abdomen soft and nontender Pulses are diminished in both lower extremities as previously noted. Able to move all arms and legs although limited by significant pain from his back spondylolisthesis and his significant osteoarthritis of knees and hips. No skin rash. Assessment and Plan (1) COPD (chronic obstructive pulmonary disease) Current visit: Yes Status: Acute Category: Medical Code(s): J44.9 - Chronic obstructive pulmonary disease, unspecified (2) Hypotension Current visit: Yes Status: Acute Qualifiers: Hypotension type: unspecified hypotension type Qualified Code(s): I95.9 - Hypotension, unspecified Category: Medical Code(s): I95.9 - Hypotension, unspecified (3) Sepsis Current visit: Yes Status: Acute Qualifiers: Sepsis type: sepsis due to unspecified organism Qualified Code(s): A41.9 - Sepsis, unspecified organism Category: Medical Code(s): A41.9 - Sepsis, unspecified organism - Assessment and plan all Dx Assessment and Plan for all problems:: Cultures remain negative, still pending - continue Abx coverage fro presumed infection - family to spend tonight with patient to assist with him staying inpatient for continued management - Wean O2 as tolerated, goal >92 while awake and >88 while asleep. - If cultures remain negative and pt remains hemodynamically stable with good PO intake, transition to PO abx for empiric therapy and plan fro DC tomorros.
--- NOTE | 2018-08-20 08:36 | Pharmacy Consult Notes ---
- Pharmacy Consult Date: 08/20/18 Time: 08:34 Referring provider: DR. GERARDO Reason for Consult:: VANCOMYCIN TROUGH LEVEL Allergies and ADEs:: Allergies Allergy/AdvReac Type Severity Reaction Status Date / Time diltiazem [DILTIAZEM] Allergy Unknown Verified 12/19/17 12:23 Home Medications:: Home Medications Medication Instructions Recorded Confirmed Type Allopurinol [Allopurinol 300mg 300 tab PO DAILY 12/19/17 08/18/18 History tablet] Amlodipine Besylate [Norvasc 5mg 5 mg PO DAILY 12/19/17 08/18/18 History tablet] Aspirin [Aspirin 81mg chewable 81 mg PO DAILY 12/19/17 08/18/18 History tab] Gabapentin [Neurontin 600mg 1,200 mg PO TID 12/19/17 08/18/18 History tablet] Lisinopril [Lisinopril 40mg Tablet] 40 mg PO BID 12/19/17 08/18/18 History Oxycodone HCl/Acetaminophen 1 each PO Q6H 12/19/17 08/18/18 History [Oxycodone W/Apap 325mg Tablet] Pravastatin Sodium [Pravachol 20mg 20 mg PO HS 12/19/17 08/18/18 History Tablet] Metoprolol Succinate [Toprol XL 25 mg PO BID 08/18/18 08/18/18 History 25mg tablet] Height: 1.8 m Weight: 113.398 kg Laboratory Results:: Laboratory Results - last 24 hr 08/19/18 20:28: Vancomycin Trough 12.5 Medical History: Reports:: Chronic Obstructive Pulmonary Disease (COPD), Internal Pacemaker, MRSA Denies:: Cancer, Diabetes Mellitus Type 1, Diabetes Mellitus Type 2 Assessment and Plan (1) COPD (chronic obstructive pulmonary disease) Current visit: Yes Status: Acute Category: Medical Code(s): J44.9 - Chronic obstructive pulmonary disease, unspecified (2) Hypotension Current visit: Yes Status: Acute Qualifiers: Hypotension type: unspecified hypotension type Qualified Code(s): I95.9 - Hypotension, unspecified Category: Medical Code(s): I95.9 - Hypotension, unspecified (3) Sepsis Current visit: Yes Status: Acute Qualifiers: Sepsis type: sepsis due to unspecified organism Qualified Code(s): A41.9 - Sepsis, unspecified organism Category: Medical Code(s): A41.9 - Sepsis, unspecified organism - Assessment and plan all Dx Assessment and Plan for all problems:: BASED ON PATIENT FACTORS AND VANCOMYCIN TROUGH LEVEL, RECOMMEND CONTINUING VANCOMYCIN 2250 MG IV Q24H. PHARMACY WILL CONTINUE TO MONITOR DAILY AND ADJUST APPROPRIATE.
== END 2018-08-20 13:00 | disposition home or self-care (01) ==
LOC: ER 20:11 → ICU 08-18 00:16 → 2ND 08-18 16:19
PROVIDERS: ADMIT Family Medicine; ATTEND Internal Medicine Adolescent Medicine
CPT/HCPCS: 36415; 71010; 71020; 71045; 71046; 80048; 80053; 80202; 81001; 83605; 85025; 87040; 87070; 87205; 87275; 87276; 94761; 96365; 96367; 99282; J3370